=== PATIENT | female | born 1965 | race Caucasian/White ===

== ENCOUNTER 2016-12-08 06:56 | Day surgery (SDC) | payer OTHER ==
[2016-12-05 17:43] VITALS: Ht 154.9 cm; Wt 94.0 kg
[~2016-12-08] VITALS: Ht 154.9 cm; Wt 94.0 kg
[2016-12-08] VITALS (14 sets, daily range): BP systolic 111–143; BP diastolic 45–73; PULSE 70–86; RESP 16–25
[2016-12-08] MEDS ORDERED: SOD CHLORIDE 0.9% 1,000 ML IV SCH (07:30)
[2016-12-08] MEDS ORDERED: CEFAZOLIN 2 GM/50 ML (PMX) 50 ML IVPB SCH (07:30)
[2016-12-08] MEDS ORDERED: GLIP-95 PO (08:45)
[2016-12-08] MEDS ORDERED: NORT10CA2 PO (08:45)
[2016-12-08] MEDS ORDERED: ASPI-664 PO (08:45)
[2016-12-08] MEDS ORDERED: BYET5PEN SQ (08:45)
[2016-12-08] MEDS ORDERED: BENA10TA48 PO (08:45)
[2016-12-08] MEDS ORDERED: LANT3I SC (08:45)
[2016-12-08] MEDS ORDERED: METF1000 PO (08:45)
[2016-12-08] MEDS ORDERED: PROPOFOL 20 ML ONE (10:14)
[2016-12-08] MEDS ORDERED: NEOSTIGMINE 3 MG/3 ML SYRINGE ONE (10:14)
[2016-12-08] MEDS ORDERED: KETOROLAC 30 MG INJ ONE (10:14)
[2016-12-08] MEDS ORDERED: BUPIVACAINE 0.25% (MPF) 30 ML INJ ONE (10:14)
[2016-12-08] MEDS ORDERED: METOCLOPRAMIDE 10 MG INJ ONE (10:14)
[2016-12-08] MEDS ORDERED: ROPIVACAINE 0.5 % 30 ML VIAL ONE (10:14)
[2016-12-08] MEDS ORDERED: ROCURONIUM 50 MG INJ ONE (10:14)
[2016-12-08] MEDS ORDERED: MIDAZOLAM 1 MG/ML 2 ML INJ ONE (10:14)
[2016-12-08] MEDS ORDERED: GLYCOPYRROLATE 0.4 MG INJ ONE (10:14)
[2016-12-08] MEDS ORDERED: HYDROmorphONE 2 MG/ML SYG ONE (10:41)
[2016-12-08] MEDS ORDERED: CEFAZOLIN 1 GM INJ ONE (11:05)
[2016-12-08] MEDS ORDERED: HYDROCODONE/APAP (5/325) TAB PO ONE (11:30)
[2016-12-08] MEDS ORDERED: ONDANSETRON 4 MG INJ IV PRN (12:00)
[2016-12-08] MEDS ORDERED: DIPHENHYDRAMINE 50 MG INJ IV PRN (12:00)
[2016-12-08] MEDS ORDERED: MEPERIDINE 25 MG INJ IV PRN (12:00)
[2016-12-08] MEDS ORDERED: HYDROmorphONE (0.2 MG/ML) 10ML SYG IV PRN ×3 (12:00)
[2016-12-08] MEDS ORDERED: METOCLOPRAMIDE 10 MG INJ IV PRN (12:00)
[2016-12-08] MEDS ORDERED: OXYCODONE/ACETAMINOPHEN (5/325) TAB PO PRN ×2 (12:00)
--- NOTE | 2016-12-08 12:11 | OPR ---
DATE OF OPERATION: 12/08/2016 INDICATION: This is a 51-year-old female with symptomatic gallstones. She requests surgical excisi on of her gallbladder. Risks, alternatives, benefits, and personnel were discussed with the patient . Patient expressed understanding and consents to the operation. PREOPERATIVE DIAGNOSIS: Symptomatic gallstones. POSTOPERATIVE DIAGNOSIS: Symptomatic gallstones. OPERATION: Laparoscopic cholecystectomy. SURGEON: Dionte House MD SPECIMEN: Gallbladder. COMPLICATIONS: None. ANESTHESIA: General. PROCEDURE: The patient was taken to the OR and prepped and draped in the usual sterile fashion. Mack rgical timeout was performed. IV antibiotics were given. Supraumbilical midline incision is made w ith a 15 blade. Dissection cautery was carried down to the fascia, 2-0 Vicryl stay sutures were angus nicki on either side of the midline. Midline is opened with cautery. Balloon Kevin trocar was introd uced. Pneumoperitoneum was established. Midepigastric 12 mm optical trocar and right upper quadran t and right upper flank 5 mm optical trocars are placed under direct visualization. Upon initial in spection, there were some adhesions to the gallbladder which were taken down bluntly. The cystic du ct was identified. The critical view was established. The cystic duct and cystic artery are divide d using 2 fires of the 35 [employer] vascular load stapler. The gallbladder was taken off the gallblad ariana bed. There was good hemostasis. Gallbladder was retrieved using EndoCatch bag. Ports were rem dasha under direct visualization. Stay sutures were tied down. Additionally, [id number] 0 Vicr yl suture is used to close the midline incision. Skin is closed using skin lorraine. Local anesthes ia was injected. Dry dressings were applied. Dictated By: DIONTE JAIME/CHANCE Conf#: [id number] DID#: [id number]
== END 2016-12-08 14:05 | disposition home or self-care (01) ==
LOC: SDS 06:56
PROVIDERS: ATTEND Surgery
DX: K80.10 Calculus of gallbladder with chronic cholecystitis without obstruction (principal); I10 Essential (primary) hypertension; E11.9 Type 2 diabetes mellitus without complications
CPT/HCPCS: 47562; 82962; 84703; 88304; J0690; J1170; J2250; J2405; J2710; J2765; J2795; Z7512; Z7610; J1885

== ENCOUNTER 2017-08-31 07:18 | Day surgery (SDC) | payer OTHER ==
[~2017-08-31] VITALS: Ht 154.9 cm; Wt 92.5 kg
[~2017-08-31 07:18] MED LIST: ASPI-664 PO; BENA10TA48 PO; BYET5PEN SQ; GLIP-95 PO; LANT3I SC; METF1000 PO; NORT10CA2 PO
[2017-08-31] MEDS ORDERED: LOSA1TAB19 PO (07:33)
[2017-08-31] MEDS ORDERED: PROPOFOL 20 ML ONE ×2 (07:41)
[2017-08-31 07:43] VITALS: Ht 154.9 cm; Wt 92.5 kg
[2017-08-31 08:07] VITALS: BP 124/65; PULSE 78; RESP 13
--- NOTE | 2017-08-31 08:47 | OPPN ---
Date/Time of Note Date/Time of Note DATE: 08/31/17 TIME: 08:45 Proc Note GI Procedure Date 08/31/17 Indication: screening/surveillance, diagnostic Pre-procedure Diagnosis chronic heart burn screening colonoscopy Post-procedure Diagnosis gerd gastritis hemorrhoids Procedure Performed: Endoscopy, Colonoscopy Surgeon see signature line Assistant Production Editor none Anesthesia Type: MAC Tourniquet Time none EBL none Transfusion required none Biopsy 1: gastric and esophageal bx Grafts/Implants none Tubes/Drains none Complication(s) none Disposition: PACU Procedure Description eg and colonoscopy performed erosive esophagitis and gastritis and hemorrhoids found bx done pl omeprazole PHANI DAS MD Aug 31, 2017 08:47
[2017-08-31 09:08] VITALS: BP 102/55; PULSE 72; RESP 18
--- NOTE | 2017-08-31 14:13 | GILP ---
DATE OF PROCEDURE: PROCEDURE: Esophagogastroduodenoscopy. PREOPERATIVE DIAGNOSIS: The patient presenting with history of chronic heartburn, rule out peptic u lcer disease, esophagitis and Siu's esophagus. POSTOPERATIVE DIAGNOSES: Erosive esophagitis, erosive gastritis. DESCRIPTION OF PROCEDURE: After informed written consent was obtained, the patient was asked to lie on the left lateral side. Intravenous anesthesia was given by anesthesiologist, Dr. Cano. When the patient became somnolent, the Olympus video upper endoscope was introduced into the oropharynx, the n into the esophagus. Multiple linear erosions were noted in the distal esophagus. Multiple biopsi es were obtained to rule out opportunistic infections. Rule out Siu esophagus. Stomach showed multiple erosions in the antrum and the mid body. Rest of the stomach appeared normal. Biopsy was done from the antrum, the lesser curvature and the fundus to rule out H. pylori infection. Duodenum appeared normal up to the end of the third portion. Scope at this time was withdrawn. On the way out, no additional abnormalities detected and the procedure was terminated. PLAN: Recommend proton pump inhibitor therapy. Dictated By: PHANI MARIA/CHANCE Conf#: [id number] DID#: [id number] CC: Jojo Lam;*EndCC*
--- NOTE | 2017-08-31 14:20 | GILP ---
DATE OF PROCEDURE: PREOPERATIVE DIAGNOSIS: Screening colonoscopy, rule out colorectal neoplasm. POSTOPERATIVE DIAGNOSES: Minimal internal hemorrhoids, minimal external hemorrhoids, rest of the co eric normal. DESCRIPTION OF PROCEDURE: After informed written consent was obtained, the patient was asked to lie on the left lateral side. Intravenous anesthesia was given by anesthesiologist, Dr. Cano. When the patient became somnolent, the Olympus video colonoscope was introduced into the rectum, scope was a dvanced all the way to the cecum. Entire colon appeared normal. On the way out, further careful ev aluation was carried out. Minimal internal hemorrhoids and minimal external hemorrhoids were noted and the procedure was terminated. PLAN: Recommend high fiber diet. Repeat colonoscopy in 10 years. Dictated By: PHANI MARIA/CHANCE Conf#: [id number] DID#: [id number] CC: DESIREE MURPHY;*EndCC*
[2017-08-31] MEDS ORDERED: DIATR MEGLU/DIATRIZOATE SODIUM 120 ML BTL ONE (15:17)
== END 2017-08-31 11:57 | disposition home or self-care (01) ==
LOC: GIL 07:18
PROVIDERS: ATTEND Internal Medicine Gastroenterology
DX: Z12.11 Encounter for screening for malignant neoplasm of colon (principal); K21.0 Gastro-esophageal reflux disease with esophagitis; K64.4 Residual hemorrhoidal skin tags; K64.8 Other hemorrhoids; I10 Essential (primary) hypertension; E11.9 Type 2 diabetes mellitus without complications; E66.01 Morbid (severe) obesity due to excess calories; Z68.38 Body mass index [BMI] 38.0-38.9, adult
CPT/HCPCS: 43239; 45378; 82962; Z7610; 88305; 88313